=== PATIENT | male | born 1985 ===

== ENCOUNTER 2021-07-03 18:32 | Emergency (ER) | payer SELFPAY ==
[~2021-07-03] VITALS: Ht 170.2 cm; Wt 99.8 kg
--- NOTE | 2021-07-03 23:58 | NUR ---
Pt not in waiting room.
== END 2021-07-04 | disposition left against medical advice (07) ==
LOC: ER 18:37
DX: Z53.21 Procedure and treatment not carried out due to patient leaving prior to being seen by health care provider (principal)